=== PATIENT | female | born 1985 | race Two or more races ===

== ENCOUNTER 2020-08-24 01:48 | Emergency (ER) | payer SELFPAY ==
[~2020-08-24] VITALS: Ht 165.1 cm; Wt 59.0 kg
[2020-08-24 02:01] VITALS: BP 101/63
--- NOTE | 2020-08-24 06:46 | NUR ---
patient left, refused to sign discharge paper, verbally abusive to staff.
== END 2020-08-24 06:46 | disposition home or self-care (01) ==
LOC: ER 01:53
DX: O9A.211 Injury, poisoning and certain other consequences of external causes complicating pregnancy, first trimester (principal); S20.212A Contusion of left front wall of thorax, initial encounter; Z3A.01 Less than 8 weeks gestation of pregnancy; W05.1XXA Fall from non-moving nonmotorized scooter, initial encounter; Y93.89 Activity, other specified; Y92.89 Other specified places as the place of occurrence of the external cause; Y99.8 Other external cause status